=== PATIENT | male | born 1945 | race Caucasian/White ===

== ENCOUNTER 2019-07-30 11:50 | Outpatient (CLI) | payer MEDICARE | END 2019-07-30 11:51 | disposition home or self-care (01) | LOC: LAB 11:50 | PROVIDERS: ATTEND Specialist | DX: C61 Malignant neoplasm of prostate (principal) | CPT/HCPCS: 36415; 84153 ==

== ENCOUNTER 2020-01-30 09:50 | Outpatient (CLI) | payer MEDICARE | END 2020-01-30 09:51 | disposition home or self-care (01) | LOC: LAB 09:50 | PROVIDERS: ATTEND Specialist | DX: C61 Malignant neoplasm of prostate (principal) | CPT/HCPCS: 36415; 84153 ==

== ENCOUNTER 2020-07-29 10:02 | Outpatient (CLI) | payer MEDICARE | END 2020-07-29 10:03 | disposition home or self-care (01) | LOC: LAB 10:02 | PROVIDERS: ATTEND Specialist | DX: C61 Malignant neoplasm of prostate (principal) | CPT/HCPCS: 36415; 84153 ==

== ENCOUNTER 2021-08-26 09:20 | Outpatient (CLI) | payer MEDICARE | END 2021-08-26 09:21 | disposition home or self-care (01) | LOC: LAB 09:20 | PROVIDERS: ATTEND Specialist | DX: C61 Malignant neoplasm of prostate (principal) | CPT/HCPCS: 36415; 84153 ==

== ENCOUNTER 2022-08-24 09:27 | Outpatient (CLI) | payer MEDICARE | END 2022-08-24 09:28 | disposition home or self-care (01) | LOC: LAB 09:27 | PROVIDERS: ATTEND Specialist | DX: C61 Malignant neoplasm of prostate (principal) | CPT/HCPCS: 36415; 84153 ==

== ENCOUNTER 2023-09-01 08:58 | Outpatient (CLI) | payer MEDICARE | END 2023-09-01 08:59 | disposition home or self-care (01) | LOC: LAB 08:58 | PROVIDERS: ATTEND Specialist | DX: C61 Malignant neoplasm of prostate (principal) | CPT/HCPCS: 36415; 84153 ==

== ENCOUNTER 2024-06-15 11:11 | Emergency (ER) | payer MEDICARE ==
--- NOTE | 2024-06-15 11:46 | ED Physician Documentation ---
History of Present Illness - Stated complaint Stated Complaint: STROKE WORK UP - Chief complaint Chief Complaint: Neuro - History obtained from History obtained from: Patient - Additonal information Additional information: 79-year-old gentleman with history of rheumatoid arthritis and hyperlipidemia on Crestor. No history of vascular disease. He went for a routine visit to his eye doctor today who noted branch retinal artery occlusions and Hollenhorst plaques and was referred here for stroke workup. He does not note any recent visual deficits nor strokelike symptoms. PD PAST MEDICAL HISTORY - Past Medical History Cardiovascular: Hypertension Respiratory: None Endocrine/Autoimmune: None GI: None : Frequency HEENT: Glaucoma Psych: None Musculoskeletal: Rheumatoid arthritis Derm: None - Past Surgical History Past Surgical History: No HEENT: Cataracts - Present Medications Home Medications: Ambulatory Orders Medication Instructions Recorded Confirmed Amlodipine Besylate 10 mg PO DAILY 09/04/16 06/15/24 Hydroxychloroquine Sulfate 1 tab PO DAILY 09/04/16 06/15/24 Rosuvastatin Calcium 10 mg PO DAILY 06/15/24 06/15/24 - Allergies Allergies/Adverse Reactions: Allergies Allergy/AdvReac Type Severity Reaction Status Date / Time No Known Drug Allergies Allergy Verified 06/15/24 11:24 - Social History Does the pt smoke?: No Smoking Status: Never smoker PD ED PE NORMAL - Vitals Vital signs reviewed: Yes - General General: Alert and oriented X 3, No acute distress - HEENT HEENT: PERRL, EOMI - Neck Neck: Supple, no meningeal sign, No bony TTP - Cardiac Cardiac: RRR, No murmur - Respiratory Respiratory: No respiratory distress, Clear bilaterally - Abdomen Abdomen: Non tender - Neuro Neuro: Alert and oriented X 3, 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 Eye Opening: Spontaneous Motor: Obeys Commands Verbal: Oriented GCS Score: 15 - Psych Psych: Normal mood, Normal affect Results - Vitals Vitals: Vital Signs - 24 hr 06/15/24 06/15/24 11:24 14:22 Temperature 36.7 C 36.4 C L Heart Rate 88 68 Respiratory 18 16 Rate Blood Pressure 132/72 H 122/58 L O2 Saturation 99 98 Oxygen O2 Source Room air - Labs Labs: Laboratory Tests 06/15/24 06/15/24 06/15/24 11:52 11:52 11:52 WBC 6.3 RBC 4.24 L Hgb 12.2 L Hct 38.3 L MCV 90.3 MCH 28.8 MCHC 31.9 L RDW 14.6 Plt Count 250 MPV 9.9 Neut # (Auto) 4.4 Lymph # (Auto) 1.1 L Long # (Auto) 0.7 Eos # (Auto) 0.0 Baso # (Auto) 0.1 Absolute Nucleated RBC 0.00 Nucleated RBC % 0.0 Sodium 138 Potassium 3.7 Chloride 103 Carbon Dioxide 27 Anion Gap 8.0 BUN 16 Creatinine 0.8 Estimated GFR (MDRD) 93 Glucose 99 Estimat Average Glucose 111 H Hemoglobin A1c % 5.5 Calcium 9.6 Total Bilirubin 0.6 AST 21 ALT 18 Alkaline Phosphatase 49 Total Protein 7.5 Albumin 4.6 Globulin 2.9 Albumin/Globulin Ratio 1.6 - Rads (name of study) MRI of the brain demonstrating moderate atrophy and chronic microvascular ischemic changes Relevant Findings:: Final report received, EMP independent interpretation of test Carotid sono Relevant Findings:: Prelim report reviewed (Preliminary report from [facility] was that his right proximal carotid artery was 95% occluded with a velocity of 24 cm/s and his left internal carotid was 72% occluded with a velocity of 131 cm/s) PD Medical Decision Making - ED course ED course: 79-year-old gentleman 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 Specific testing was recommended and we note that we do not have echocardiogram today but we still completed MRI of his head, blood work, and carotid ultrasounds. The MRI of his brain showed chronic microvascular ischemic changes and atrophy. No significant large stroke. His carotids though were notable for a 95% occlusion on the right and 72% occlusion on the left with very high velocities on the left. He was administered aspirin in [place] was called for vascular c onsultation at approximately 2 PM. About 3pm took call from vascular PA at [place] who viewed sono images and recommends further w/u with CTA. Care to Dr Horn pending CTA. 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 We did do a CBC, CMP, and hemoglobin A1c. These demonstrated mild anemia and your hemoglobin A1c was normal at 5.5 suggesting that you are not diabetic. MRI of your brain did not show any strokes. You did have "moderate atrophy and chronic microvascular ischemic changes" which are common at the age of 79. As discussed, we cannot obtain the echocardiogram today as the quality improvement coordinator is only here Tuesday through . For that follow-up with your primary care physician to order, could be done here or in [place]. Start a baby aspirin (81 mg) daily going forward. Forms: PCP List
[2024-06-15 11:59] LABS: BASOPHILS # (AUTO) 0.1 10^3/uL (0.0-0.1); BASOPHILS % (AUTO) 0.8 %; EOSINOPHILS % (AUTO) 0.6 %; HCT - HEMATOCRIT 38.3 % (42.0-52.0); HGB - HEMOGLOBIN 12.2 g/dL (14.0-18.0); LYMPHOCYTES # (AUTO) 1.1 10^3/uL (1.5-3.5); MEAN CORPUSCULAR HEMOGLOBIN 28.8 pg (27.0-31.0); MEAN CORPUSCULAR HGB CONC 31.9 g/dL (32.0-36.0); MEAN CORPUSCULAR VOLUME 90.3 fL (80.0-94.0); MEAN PLATELET VOLUME 9.9 fL (7.4-11.4); MONOCYTES # (AUTO) 0.7 10^3/uL (0.0-1.0); MONOCYTES % (AUTO) 11.1 %; NEUTROPHILS # (AUTO) 4.4 10^3/uL (1.5-6.6); NEUTROPHILS % (AUTO) 70.3 %; PLT - PLATELET COUNT 250 10^3/uL (130-450); RED BLOOD COUNT 4.24 10^6/uL (4.70-6.10); RED CELL DISTRIBUTION WIDTH 14.6 % (12.0-15.0); WHITE BLOOD COUNT 6.3 x10^3/uL (4.8-10.8)
[2024-06-15 12:14] LABS: ALBUMIN 4.6 g/dL (3.2-5.5); ALBUMIN/GLOBULIN RATIO 1.6 (1.0-2.2); BILIRUBIN,TOTAL 0.6 mg/dL (0.2-1.0); CALCIUM 9.6 mg/dL (8.5-10.3); CREATININE 0.8 mg/dL (0.6-1.3); POTASSIUM 3.7 mmol/L (3.5-4.5); TOTAL PROTEIN 7.5 g/dL (6.4-8.9)
[2024-06-15 12:25] LABS: ESTIMATED AVERAGE GLUCOSE 111 mg/dL (70-100); HEMOGLOBIN A1c% 5.5 % (4.27-6.07)
--- NOTE | 2024-06-15 12:46 | MRI Report ---
PROCEDURE: Brain WO INDICATIONS: retinal cva TECHNIQUE: Noncontrast axial T1 spin echo, axial T2 fast spin echo, sagittal and axial FLAIR, coronal T2 fast sp in echo, axial gradient echo, axial diffusion and ADC through the brain. COMPARISON: None. FINDINGS: Image quality: Degraded by motion artifact. The ventricular system and cortical sulci demonstrate atrophy, consistent for patient's stated age. There are areas of hyperintense T2/FLAIR signal in the periventricular and subcortical white matter. There is no acute intra or extra-axial fluid collection. No acute hemorrhage, mass lesion or midlin e shift. Brainstem is unremarkable. There are no areas of restricted diffusion. Globes are symmetr ical. Sinuses are aerated. Osseous structures are intact. IMPRESSION: 1. No acute intracranial process. No visualized acute ischemia. 2. Moderate atrophy and chronic microvascular ischemic changes. Reviewed by: Annamaria Guan MD on 06/15/2024 12:44 PM PDT Approved by: Annamaria Guan MD on 06/15/2024 12:44 PM PDT Station ID: [id number]
[2024-06-15] MEDS: ASPIRIN CHEW 81 MG TABLET PO STA (14:19)
--- NOTE | 2024-06-15 14:42 | Ultrasound Report ---
PROCEDURE: Carotid Doppler Complete INDICATIONS: retinal cva TECHNIQUE: Color and pulse Doppler interrogation was performed of both carotid systems, with image documentation and velocity measurements. COMPARISON: None. FINDINGS: Right side: Brachial blood pressure: 123/62 mm Hg. Common carotid artery peak systolic velocity: 30 cm/sec. Internal carotid artery peak systolic velocity: 69 cm/sec. Internal carotid artery end diastolic velocity: 20 cm/sec. External carotid artery peak systolic velocity: 98 cm/sec. ICA/CCA peak systolic ratio: 1.0 . Yañez scale imaging description: Significant plaque Percent internal carotid artery stenosis: Less than 50%. Vertebral artery: Flow direction is antegrade. Left side: Brachial blood pressure: 131/65 mm Hg. Common carotid artery peak systolic velocity: 37 cm/sec. Internal carotid artery peak systolic velocity: 131 cm/sec., Increased from 1 31 cm/s Internal carotid artery end diastolic velocity: 30 cm/sec. External carotid artery peak systolic velocity: 64 cm/sec. ICA/CCA peak systolic ratio: 3.6 . Yañez scale imaging description: Significant plaque Percent internal carotid artery stenosis: 50-69% stenosis. Vertebral artery: Flow direction is antegrade. IMPRESSION: 1. In the right internal carotid artery, there is less than 50% stenosis, unchanged based on peak sys tolic velocity criteria. 2. In the left internal carotid artery, there is 50-69% stenosis, increased based on peak systolic ve locity criteria. 3. Antegrade blood flow within the right vertebral artery. 4. Antegrade blood flow within the left vertebral artery. The estimate of stenosis included in the report of the imaging study was calculated using the [facility]-end orsed standards of carotid artery stenosis. Reviewed by: Annamaria Guan MD on 06/15/2024 2:41 PM PDT Approved by: Annamaria Guan MD on 06/15/2024 2:41 PM PDT Station ID: [id number]
[2024-06-15] MEDS ORDERED: iohexoL-300 100 ML VIAL ONE (16:28)
--- NOTE | 2024-06-15 16:38 | ED Physician Documentation ---
ED Addendum - Addendum Addendum: 06/15/24 16:36 Patient was signed out to me by Dr. Littlejohn awaiting CT angiogram of the head and neck for stroke workup. He was seen for routine eye exam today, has no focal neurological deficits. While awaiting CT angiogram, I did speak with Dr. Villarreal, Neurology at the [facility]. I was reviewing the prelim jewelry technician read as given to Dr. Littlejohn, but it is different than the jewelry technician read officially by the radiologist. Therefore we will wait for the CT angiogram. Assuming that the CT angiogram does not show any significant abnormalities, and the patient does not have any acute stroke symptoms today, the neurologist at the [facility] recommends increasing rosuvastatin to 40 mg daily and starting aspirin [address] angiogram is similar to the ultrasound report. There are no significant abnormalities that would require acute intervention. The patient does not have any acute neurological symptoms. Therefore does not need acute intervention with vascular surgery. Recommendations of the neurologist were followed. Patient counseled regarding signs and symptoms for which I believe and urgent re-evaluation would be necessary. Patient with good understanding of and agreement to plan and is comfortable going home at this time This document was made in part using voice recognition software. While efforts are made to proofread this document, sound alike and grammatical errors may occur. EXAM: [id number] CT/HNA PROCEDURE: Angio Head/Neck INDICATIONS: retinal artery occlusions TECHNIQUE: After the administration of intravenous contrast, 1 mm thick sections acquired from the aortic arch through the [place] of [place]. 3-dimensional kbotucn-pohhfnmrs-mydrsirrep (MIP) and/or volume rendering reformats were acquired of the central intracranial vasculature and neck separately. For radiation dose reduction, the following was used: automated exposure control, adjustment of mA and/or kV according to patient size. CONTRAST: 80ml omni 300 COMPARISON: Same day carotid Doppler and brain MRI. FINDINGS: Image quality: Diagnostic. HEAD CT: CSF Spaces: Basal cisterns are patent. No extra-axial fluid collections. Ventricles are normal in size and shape. Brain: No significant abnormality is seen for scanning technique. Skull and face: Calvarium and visualized facial bones appear intact, without suspicious lesions. Sinuses: Visualized sinuses and mastoids are clear. HEAD CT ANGIOGRAPHY: Anterior circulation: Intracranial internal carotid arteries are normal in size and flow. The flow within the paired anterior cerebral arteries is normal and symmetric. The flow within the middle cerebral arteries is normal and symmetric. The anterior communicating artery is seen. No aneurysms are seen. Posterior circulation: Visualized portions of the vertebral arteries demonstrate normal caliber, and join to form a normal appearing basilar artery. Flow within the posterior cerebral arteries is normal and symmetric. No aneurysms are seen. NECK CT ANGIOGRAPHY: Carotid system: The great vessels demonstrate a conventional anatomy as they arise from the aortic arch with atherosclerotic calcifications. The origins of the common carotid arteries appear patent. The common carotid arteries demonstrate normal caliber and courses. The bifurcation regions demonstrate coarse calcifications with less than 50% stenosis on the right and 50-69% stenosis of the left. The internal carotid arteries demonstrate normal calibers and courses. Posterior circulation: The origins of the vertebral arteries both appear widely patent. The more superior extracranial portions of both vertebral arteries also demonstrate normal courses and calibers. They join to form a normal appearing basilar artery. Soft tissues: Visualized neck soft tissues demonstrate no suspicious abnorma lities. Bones: No suspicious bony lesions. Visualized cervical spine appears normally aligned. Degenerative changes of the spine. IMPRESSION: No significant intracranial arterial abnormality is seen. Atherosclerotic calcifications of the bilateral carotid bulbs with less than 50% stenosis on the right and 50-69% stenosis of the left. Otherwise, no significant arterial abnormalities within the neck.. 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 We did do a CBC, CMP, and hemoglobin A1c. These demonstrated mild anemia and your hemoglobin A1c was normal at 5.5 suggesting that you are not diabetic. MRI of your brain did not show any strokes. You did have "moderate atrophy and chronic microvascular ischemic changes" which are common at the age of 79. As discussed, we cannot obtain the echocardiogram today as the special events coordinator is only here Tuesday through . For that follow-up with your primary care physician to order, could be done here or in [place]. As we discussed we will start you on a full dose aspirin daily. We will also increase your rosuvastatin to 40 mg daily. You do have mild blockages in both of your carotid arteries, these do not need intervention tonight. Please follow-up with your doctor for further care. Your prescriptions were sent to [facility] EXAM: [id number] CT/HNA PROCEDURE: Angio Head/Neck INDICATIONS: retinal artery occlusions TECHNIQUE: After the administration of intravenous contrast, 1 mm thick sections acquired from the aortic arch through the [place]. 3-dimensional obolgcu-lzgbxvbjn-pgfdhfbqac (MIP) and/or volume rendering reformats were acquired of the central intracranial vasculature and neck separately. For radiation dose reduction, the following was used: automated exposure control, adjustment of mA and/or kV according to patient size. CONTRAST: 80ml omni 300 COMPARISON: Same day carotid Doppler and brain MRI. FINDINGS: Image quality: Diagnostic. HEAD CT: CSF Spaces: Basal cisterns are patent. No extra-axial fluid collections. Ventricles are normal in size and shape. Brain: No significant abnormality is seen for scanning technique. Skull and face: Calvarium and visualized facial bones appear intact, without suspicious lesions. Sinuses: Visualized sinuses and mastoids are clear. HEAD CT ANGIOGRAPHY: Anterior circulation: Intracranial internal carotid arteries are normal in size and flow. The flow within the paired anterior cerebral arteries is normal and symmetric. The flow within the middle cerebral arteries is normal and symmetric. The anterior communicating artery is seen. No aneurysms are seen. Posterior circulation: Visualized portions of the vertebral arteries demonstrate normal caliber, and join to form a normal appearing basilar artery. Flow within the posterior cerebral arteries is normal and symmetric. No aneurysms are seen. NECK CT ANGIOGRAPHY: Carotid system: The great vessels demonstrate a conventional anatomy as they arise from the aortic arch with atherosclerotic calcifications. The origins of the common carotid arteries appear patent. The common carotid arteries demonstrate normal caliber and courses. The bifurcation regions demonstrate coarse calcifications with less than 50% stenosis on the right and 50-69% stenosis of the left. The internal carotid arteries demonstrate normal calibers and courses. Posterior circulation: The origins of the vertebral arteries both appear widely patent. The more superior extracranial portions of both vertebral arteries also demonstrate normal courses and calibers. They join to form a normal appearing basilar artery. Soft tissues: Visualized neck soft tissues demonstrate no suspicious abnormalities. Bones: No suspicious bony lesions. Visualized cervical spine appears normally aligned. Degenerative changes of the spine. IMPRESSION: No significant intracranial arterial abnormality is seen. Atherosclerotic calcifications of the bilateral carotid bulbs with less than 50% stenosis on the right and 50-69% stenosis of the left. Otherwise, no significant arterial abnormalities within the neck.. The estimate of stenosis included in the report of the imaging study was calculated using the NASCET method Forms: PCP List Discharge Date/Time: 06/15/24 18:12
--- NOTE | 2024-06-15 17:44 | CT Report ---
PROCEDURE: Angio Head/Neck INDICATIONS: retinal artery occlusions TECHNIQUE: After the administration of intravenous contrast, 1 mm thick sections acquired from the aortic arch t hrough the [place] of [place]. 3-dimensional lkilgge-udnrgtdqx-ucnaxycicv (MIP) and/or volume renderin g reformats were acquired of the central intracranial vasculature and neck separately. For radiation dose reduction, the following was used: automated exposure control, adjustment of mA and/or kV acco rding to patient size. CONTRAST: 80ml omni 300 COMPARISON: Same day carotid Doppler and brain MRI. FINDINGS: Image quality: Diagnostic. HEAD CT: CSF Spaces: Basal cisterns are patent. No extra-axial fluid collections. Ventricles are normal in size and shape. Brain: No significant abnormality is seen for scanning technique. Skull and face: Calvarium and visualized facial bones appear intact, without suspicious lesions. Sinuses: Visualized sinuses and mastoids are clear. HEAD CT ANGIOGRAPHY: Anterior circulation: Intracranial internal carotid arteries are normal in size and flow. The flow within the paired anterior cerebral arteries is normal and symmetric. The flow within the middle cer ebral arteries is normal and symmetric. The anterior communicating artery is seen. No aneurysms are seen. Posterior circulation: Visualized portions of the vertebral arteries demonstrate normal caliber, and join to form a normal appearing basilar artery. Flow within the posterior cerebral arteries is norm al and symmetric. No aneurysms are seen. NECK CT ANGIOGRAPHY: Carotid system: The great vessels demonstrate a conventional anatomy as they arise from the aortic a rch with atherosclerotic calcifications. The origins of the common carotid arteries appear patent. The common carotid arteries demonstrate normal caliber and courses. The bifurcation regions demonstr ate coarse calcifications with less than 50% stenosis on the right and 50-69% stenosis of the left. The internal carotid arteries demonstrate normal calibers and courses. Posterior circulation: The origins of the vertebral arteries both appear widely patent. The more donahue perior extracranial portions of both vertebral arteries also demonstrate normal courses and calibers. They join to form a normal appearing basilar artery. Soft tissues: Visualized neck soft tissues demonstrate no suspicious abnormalities. Bones: No suspicious bony lesions. Visualized cervical spine appears normally aligned. Degenerativ e changes of the spine. IMPRESSION: No significant intracranial arterial abnormality is seen. Atherosclerotic calcifications of the bilateral carotid bulbs with less than 50% stenosis on the righ t and 50-69% stenosis of the left. Otherwise, no significant arterial abnormalities within the neck.. The estimate of stenosis included in the report of the imaging study was calculated using the NASCET method Reviewed by: Jae Stokes MD on 06/15/2024 5:43 PM PDT Approved by: Jae Stokes MD on 06/15/2024 5:43 PM PDT Station ID: [id number]
[2024-06-15 18:14] VITALS: BP 154/98; O2SAT 99
[2024-06-15] MEDS: iohexoL-300 100 ML VIAL IVP ONE (19:11)
== END 2024-06-15 18:12 | disposition home or self-care (01) ==
LOC: ED 11:11
DX: H34.239 Retinal artery branch occlusion, unspecified eye (principal); H34.219 Partial retinal artery occlusion, unspecified eye; I65.23 Occlusion and stenosis of bilateral carotid arteries; I10 Essential (primary) hypertension; G31.89 Other specified degenerative diseases of nervous system; I67.82 Cerebral ischemia; Z79.82 Long term (current) use of aspirin; Z79.899 Other long term (current) drug therapy
CPT/HCPCS: 36415; 70496; 70498; 70551; 80053; 83036; 85025; 93880; 99284; A9270; Q9967